=== PATIENT | female | born 1960 | race Caucasian/White ===

== ENCOUNTER 2017-07-26 10:19 | Emergency (ER) | payer MEDICARE ==
[~2017-07-26] VITALS: Ht 165.1 cm; Wt 90.7 kg
[~2017-07-26 10:19] MED LIST: ACETAMINOP325 MG/10 PO; IRBESARTAN150 MG PO; KRILL OIL500 MG PO; LEVEMIR100 UNIT/1; NOVOLOG MI100 UNITS/; OMEPRAZOLE40 MG PO; [UNRECOGNIZED DRUG - OTHER] PO
[2017-07-26] MEDS ORDERED: ALBUTEROL SULF 0.083% NEB SOLN 3 ML NEB NEB STA (10:55)
[2017-07-26] MEDS ORDERED: DEXAMETHASONE SOD PHOS 10 MG/1 ML VIAL INJ ONE (11:00)
--- NOTE | 2017-07-26 12:32 | Diagnostic Imaging Report ---
PROCEDURE: Frontal and lateral views of the chest. COMPARISON: None. INDICATIONS: COUGH, SHORTNESS OF BREATH FINDINGS: Lines/tubes: None. Lungs: The lungs are well inflated. 4 mm nodular density projects over the posterior aspect of the left fifth rib on the frontal view. There is no evidence of pneumonia or pulmonary edema. Pleura: There is no pleural effusion or pneumothorax. Heart and mediastinum: Cardiac silhouette is unremarkable. Pulmonary vasculature is normal. Bones: No acute bony abnormality. IMPRESSION: 1. No acute cardiopulmonary disease. 2. 4 mm nodular density in the left upper lobe may represent a calcified granuloma or pulmonary nodule. Prior films, if available, would be helpful for comparison. If no prior films can be obtained, recommend followup chest, PA and lateral in 3 months to document stability. Crow Hendrix M.D. Dictated by: Crow Hendrix M.D. on 07/26/2017 at 12:40 Electronically approved by: Crow Hendrix M.D. on 07/26/2017 at 12:40
[2017-07-26 13:34] VITALS: BP 138/62
== END 2017-07-26 13:50 | disposition home or self-care (01) ==
LOC: ER 10:19
DX: R50.9 Fever, unspecified (principal); R05 Cough; J20.8 Acute bronchitis due to other specified organisms
CPT/HCPCS: 71020; 87400; 99283; J1100

== ENCOUNTER 2019-05-28 13:50 | Outpatient (RCR) | payer MEDICARE | END 2019-06-15 | LOC: PT 13:50 | PROVIDERS: ATTEND Specialist | DX: M25.512 Pain in left shoulder (principal); M25.612 Stiffness of left shoulder, not elsewhere classified; M62.81 Muscle weakness (generalized); M54.2 Cervicalgia ==

== ENCOUNTER 2019-10-02 13:59 | Outpatient (RCR) | payer MEDICARE ==
[~2019-10-02 13:59] MED LIST changes: +AMLODIPINE BESY10 MG PO; +CALCIUM 500+D1 EACH PO; +CELEBREX100 MG PO; +EPIPEN INJ; +GLIPIZIDE5 MG PO; -LEVEMIR100 UNIT/1; +LEVEMIR100 UNIT/1 SQ; +METOCLOPRAMIDE10 MG PO; +METOPROLOL TART25 MG PO; +NOVOLOG100 UNIT/1 SC; +PANTOPRAZOLE SO20 MG PO; +SIMVASTATIN20 MG PO; +TRADJENTA5 MG PO; +ZYRTEC10 M3 PO
== END 2019-10-15 ==
LOC: PT 13:59
PROVIDERS: ATTEND Specialist
DX: M25.512 Pain in left shoulder (principal); M25.612 Stiffness of left shoulder, not elsewhere classified; M62.81 Muscle weakness (generalized)

== ENCOUNTER 2019-12-13 13:52 | Outpatient (RCR) | payer MEDICARE | END 2019-12-15 | LOC: PT 13:52 | PROVIDERS: ATTEND Specialist | DX: M75.102 Unspecified rotator cuff tear or rupture of left shoulder, not specified as traumatic (principal); M25.512 Pain in left shoulder; M62.81 Muscle weakness (generalized); M25.612 Stiffness of left shoulder, not elsewhere classified | CPT/HCPCS: 97139 ==

== ENCOUNTER 2020-01-13 14:41 | Outpatient (RCR) | payer MEDICARE | END 2020-01-14 | LOC: PT 14:41 | PROVIDERS: ATTEND Specialist | DX: M75.102 Unspecified rotator cuff tear or rupture of left shoulder, not specified as traumatic (principal); M62.81 Muscle weakness (generalized); M25.512 Pain in left shoulder; M25.612 Stiffness of left shoulder, not elsewhere classified ==

== ENCOUNTER 2020-02-12 15:00 | Outpatient (RCR) | payer MEDICARE | END 2020-02-14 | LOC: PT 15:00 | PROVIDERS: ATTEND Specialist | DX: M75.102 Unspecified rotator cuff tear or rupture of left shoulder, not specified as traumatic (principal); M62.81 Muscle weakness (generalized); M25.512 Pain in left shoulder; M25.612 Stiffness of left shoulder, not elsewhere classified | CPT/HCPCS: 97139 ==

== ENCOUNTER 2020-03-04 14:56 | Outpatient (RCR) | payer MEDICARE ==
[~2020-03-04 14:56] MED LIST changes: +HUMALOG100 UNIT/1 SQ; +JARDIANCE10 MG PO; +PENTOXIFYLLINE400 MG PO; +SINGULAIR10 MG PO
== END 2020-03-16 ==
LOC: PT 14:56
PROVIDERS: ATTEND Specialist
DX: M75.102 Unspecified rotator cuff tear or rupture of left shoulder, not specified as traumatic (principal); M62.81 Muscle weakness (generalized); M25.512 Pain in left shoulder; M25.612 Stiffness of left shoulder, not elsewhere classified

== ENCOUNTER → 2021-03-16 | Outpatient (CLI) | payer MEDICARE | LOC: MRI 12:37 | PROVIDERS: ATTEND Specialist | DX: M75.102 Unspecified rotator cuff tear or rupture of left shoulder, not specified as traumatic (principal) ==

== ENCOUNTER → 2021-04-15 | Outpatient (RCR) | payer MEDICARE | LOC: PT 04-02 12:47 | PROVIDERS: ATTEND Specialist | DX: M75.02 Adhesive capsulitis of left shoulder (principal); M25.512 Pain in left shoulder; M25.612 Stiffness of left shoulder, not elsewhere classified; M62.81 Muscle weakness (generalized) ==

== ENCOUNTER 2021-04-16 12:49 | Outpatient (RCR) | payer MEDICARE | END 2021-05-16 | LOC: PT 12:49 | PROVIDERS: ATTEND Specialist | DX: M75.02 Adhesive capsulitis of left shoulder (principal); M25.512 Pain in left shoulder; M25.612 Stiffness of left shoulder, not elsewhere classified; M62.81 Muscle weakness (generalized) ==

== ENCOUNTER → 2021-07-26 | Day surgery (SDC) | payer MEDICARE ==
[2021-07-23 13:50] LABS: CREATININE, SERUM 1.16 mg/dL (0.57-1.11)
[~2021-07-26] MED LIST changes: +BROMOCRIPTINE ME5 MG PO; +FAMOTIDINE20 MG PO; +FENTANYL CITRATE/PF 100MCG/2 ML INJ ONE; +FLONASE ALLERG9.9 ML INH; +LIDOCAINE HCL 2% LOCAL INJ 5 ML SDV VIAL INJ ONE; +LOSARTAN POTAS100 MG PO; +MECLIZINE HCL12.5 MG PO; +MIDAZOLAM HCL 2 MG/2 ML VIAL ONE; +POVIDONE IODINE 0.05% 0.05 % ML PO ONE; +PROPOFOL IV EMULSION 10 MG/ML 20 ML VIAL ONE; +SEVOFLURANE INHAL SOLN 250 ML PEN BTL ONE
[2021-07-26 07:40] VITALS: BP 113/53
== END | disposition home or self-care (01) ==
LOC: OR 06:47
PROVIDERS: ATTEND Specialist
DX: M75.02 Adhesive capsulitis of left shoulder (principal); I10 Essential (primary) hypertension; E78.5 Hyperlipidemia, unspecified; K21.9 Gastro-esophageal reflux disease without esophagitis; E11.9 Type 2 diabetes mellitus without complications; Z88.6 Allergy status to analgesic agent; Z88.1 Allergy status to other antibiotic agents; Z88.0 Allergy status to penicillin; Z88.2 Allergy status to sulfonamides; Z88.8 Allergy status to other drugs, medicaments and biological substances; Z01.810 Encounter for preprocedural cardiovascular examination; Z01.812 Encounter for preprocedural laboratory examination; Z20.822 Contact with and (suspected) exposure to COVID-19; Z79.4 Long term (current) use of insulin; Z79.899 Other long term (current) drug therapy; Z68.35 Body mass index [BMI] 35.0-35.9, adult
CPT/HCPCS: 23700; 36415 ×2; 80048; 82948; 93005; J3010; U0002; J2001; J2250

== ENCOUNTER → 2023-01-10 | Day surgery (SDC) | payer MEDICARE, OTHER ==
[~2023-01-10] MED LIST changes: -FENTANYL CITRATE/PF 100MCG/2 ML INJ ONE; +FUROSEMIDE40 MG PO; +HYOSCYAMINE SULFATE 0.5 MG/ML INJ ONE; +LACTATED RINGER'S 1,000 ML ONE; -MIDAZOLAM HCL 2 MG/2 ML VIAL ONE; +NOVOLIN N100 UNIT/1; +PIOGLITAZONE HC45 MG PO; -POVIDONE IODINE 0.05% 0.05 % ML PO ONE; +PROBIOTIC & AC1 EACH PO; -SEVOFLURANE INHAL SOLN 250 ML PEN BTL ONE; +VITAMIN D325 MCG; +ZYRTEC10 MG
[2023-01-10 15:51] VITALS: TEMP 97.6
[2023-01-10 16:20] VITALS: BP 116/62; PULSE 72; RESP 16; O2SAT 100
== END | disposition home or self-care (01) ==
LOC: OR 12:18
PROVIDERS: ATTEND Internal Medicine Gastroenterology
DX: K63.5 Polyp of colon (principal); K63.89 Other specified diseases of intestine; K64.8 Other hemorrhoids; K29.60 Other gastritis without bleeding; K21.9 Gastro-esophageal reflux disease without esophagitis; K44.9 Diaphragmatic hernia without obstruction or gangrene; Z71.3 Dietary counseling and surveillance; E78.5 Hyperlipidemia, unspecified; E11.22 Type 2 diabetes mellitus with diabetic chronic kidney disease; I12.9 Hypertensive chronic kidney disease with stage 1 through stage 4 chronic kidney disease, or unspecified chronic kidney disease; N18.30 Chronic kidney disease, stage 3 unspecified; R42 Dizziness and giddiness; Z88.6 Allergy status to analgesic agent; Z88.1 Allergy status to other antibiotic agents; Z88.0 Allergy status to penicillin; Z88.8 Allergy status to other drugs, medicaments and biological substances; Z01.810 Encounter for preprocedural cardiovascular examination; Z79.4 Long term (current) use of insulin; Z79.84 Long term (current) use of oral hypoglycemic drugs; Z79.899 Other long term (current) drug therapy; Z68.35 Body mass index [BMI] 35.0-35.9, adult; Z87.891 Personal history of nicotine dependence; Z80.0 Family history of malignant neoplasm of digestive organs
CPT/HCPCS: 36415; 45380; 45385; 82948; 88305; 93005; J1980; J2001; J2704; J7121

== ENCOUNTER 2023-05-03 10:52 | Observation (INO) | payer MEDICARE, OTHER ==
[~2023-05-03] VITALS: Ht 165.1 cm; Wt 95.4 kg
[~2023-05-03 10:52] MED LIST changes: -HYOSCYAMINE SULFATE 0.5 MG/ML INJ ONE; -LACTATED RINGER'S 1,000 ML ONE; -LIDOCAINE HCL 2% LOCAL INJ 5 ML SDV VIAL INJ ONE; -PROPOFOL IV EMULSION 10 MG/ML 20 ML VIAL ONE
[2023-05-03 12:01] LABS: BASOPHILS % 0.4 % (0.0-1.0); EOSINOPHILS # (AUTO) 0.1 (0.0-0.4); EOSINOPHILS % 1.3 % (0.0-6.0); HEMOGLOBIN 13.7 g/dL (12.0-16.0); LYMPHOCYTES # (AUTO) 1.3 (1.0-3.2); LYMPHOCYTES % 14.2 % (18.0-39.1); MEAN CORPUSCULAR HEMOGLOBIN 31.6 pg (28-32); MEAN CORPUSCULAR HGB CONC 34.3 g/dL (31-35); MEAN CORPUSCULAR VOLUME 92.2 fL (81-99); MONOCYTES # (AUTO) 0.6 (0.2-0.8); MONOCYTES % 6.3 % (4.4-11.3); NEUTROPHILS # (AUTO) 7.1 (2.1-6.9); NEUTROPHILS % 77.5 % (38.7-80.0); PLATELET COUNT 161 x10e3/uL (140-360); RED BLOOD COUNT 4.34 x10e6/uL (3.6-5.1); RED CELL DISTRIBUTION WIDTH 13.6 % (11.7-14.4); WHITE BLOOD COUNT 9.17 x10e3/uL (4.8-10.8)
[2023-05-03 12:18] LABS: INR 0.94; PARTIAL THROMBOPLASTIN TIME 25.8 seconds (23.8-35.5); PROTHROMBIN TIME 13.1 seconds (11.9-14.5)
[2023-05-03 12:29] LABS: ALBUMIN 4.1 g/dL (3.5-5.0); ALBUMIN/GLOBULIN RATIO 1.1 (0.8-2.0); CALCIUM 9.9 mg/dL (8.4-10.2); CREATININE, SERUM 1.32 mg/dL (0.57-1.11)
[2023-05-03 12:55] LABS: MAGNESIUM 2.2 MG/DL (1.3-2.1)
[2023-05-03] MEDS ORDERED: HEPARIN SOD (PORCINE) 5,000 UNIT/ML VIAL IV ONE (13:15)
[2023-05-03] MEDS ORDERED: NITROGLYCERIN 0.4 MG SUBL SL ONE (13:15)
[2023-05-03] MEDS ORDERED: HEPARIN 25,000 UNIT/D5W 250ML 800 UNIT in DEXTROSE 5% 250ML 250 ML IV SCH (13:15)
[2023-05-03] MEDS ORDERED: HEPARIN 25,000 UNIT DRIP IV ONE (13:33)
[2023-05-03] MEDS: HEPARIN 25,000 UNIT/D5W 250ML 800 UNIT in DEXTROSE 5% 250ML 250 ML IV SCH (13:41)
[2023-05-03] MEDS ORDERED: LACTATED RINGER'S 1,000 ML IV ONE (14:45)
[2023-05-03] MEDS ORDERED: IOPAMIDOL 370 MG/ML 100 ML INFUS..BTL INJ ONE (14:45)
[2023-05-03 16:00] VITALS: BP 167/54; PULSE 74; RESP 19; TEMP 98.1; O2SAT 97
[2023-05-03] MEDS ORDERED: PLAVIX75 MG PO (17:41)
[2023-05-03 17:47] VITALS: BP 167/54; PULSE 74; RESP 19; TEMP 98.1; O2SAT 97
[2023-05-03] MEDS ORDERED: HUMULIN R100 UNIT/2 INJ (18:27)
[2023-05-03 20:00] VITALS: BP 145/55; PULSE 81; RESP 20; TEMP 98.7; O2SAT 99
[2023-05-03 21:00] VITALS: BP 145/55; PULSE 81; RESP 20; TEMP 98.7; O2SAT 99
[2023-05-04] VITALS: BP 147/50; PULSE 82; RESP 20; TEMP 98.7; O2SAT 96
[2023-05-04 03:00] VITALS: BP 127/51; PULSE 67; RESP 20; TEMP 98; O2SAT 94
[2023-05-04] MEDS: HEPARIN 25,000 UNIT/D5W 250ML 800 UNIT in DEXTROSE 5% 250ML 250 ML IV SCH (03:15)
[2023-05-04] MEDS ORDERED: PANTOPRAZOLE SOD 40 MG TABEC PO SCH (07:45)
[2023-05-04 08:43] VITALS: BP 139/68; PULSE 69; RESP 16; TEMP 98.2; O2SAT 99
[2023-05-04 08:48] VITALS: BP 139/68; PULSE 69; RESP 16; TEMP 98.2; O2SAT 99
[2023-05-04] MEDS ORDERED: FLUTICASONE PROPIONATE NASAL SPRAY NS SCH (09:00)
[2023-05-04] MEDS ORDERED: FAMOTIDINE 20 MG TAB PO SCH (09:00)
[2023-05-04] MEDS ORDERED: MECLIZINE HCL 12.5 MG TAB PO SCH (09:00)
[2023-05-04] MEDS ORDERED: PIOGLITAZONE HCL 45 MG TAB PO SCH (09:00)
[2023-05-04] MEDS ORDERED: LOSARTAN POTASSIUM 25 MG TAB PO SCH (09:00)
[2023-05-04] MEDS ORDERED: MONTELUKAST SODIUM 10 MG TAB PO SCH (09:00)
[2023-05-04] MEDS ORDERED: PENTOXIFYLLINE 400 MG TAB CR PO SCH (09:00)
[2023-05-04] MEDS ORDERED: LACTOBACILLUS ACIDOPHILUS CAPSULE PO SCH (09:00)
[2023-05-04] MEDS ORDERED: DEXTROSE 50% SYRINGE 50 ML IV PRN (09:15)
[2023-05-04] MEDS ORDERED: CLOPIDOGREL BISULFATE 75 MG TAB PO ONE (10:00)
[2023-05-04] MEDS: INSULIN LISPRO 100 UNIT/1 ML 3ML VIAL SQ SCH ×2 (11:30→11:48)
[2023-05-04 12:25] VITALS: BP 140/55; PULSE 70; RESP 18; TEMP 98.2; O2SAT 97
[2023-05-04] MEDS ORDERED: SIMVASTATIN 20 MG TAB PO SCH (21:00)
[2023-05-04] MEDS ORDERED: AMLODIPINE BESYLATE 10 MG TAB PO SCH (21:00)
[2023-05-05] MEDS ORDERED: CLOPIDOGREL BISULFATE 75 MG TAB PO SCH (09:00)
== END 2023-05-04 15:34 | disposition home or self-care (01) ==
LOC: ER 11:14 → ERHOLD 13:28 → INTOOBSV 13:28 → MED/SURG2 15:52
PROVIDERS: ADMIT Internal Medicine; ATTEND Internal Medicine
DX: R07.89 Other chest pain (principal); M94.0 Chondrocostal junction syndrome [Tietze]; R79.89 Other specified abnormal findings of blood chemistry; I25.10 Atherosclerotic heart disease of native coronary artery without angina pectoris; Z95.5 Presence of coronary angioplasty implant and graft; R42 Dizziness and giddiness; E11.22 Type 2 diabetes mellitus with diabetic chronic kidney disease; I12.9 Hypertensive chronic kidney disease with stage 1 through stage 4 chronic kidney disease, or unspecified chronic kidney disease; N18.9 Chronic kidney disease, unspecified; E78.5 Hyperlipidemia, unspecified; E66.9 Obesity, unspecified; Z88.6 Allergy status to analgesic agent; Z91.012 Allergy to eggs; Z91.011 Allergy to milk products; Z88.0 Allergy status to penicillin; Z88.8 Allergy status to other drugs, medicaments and biological substances; Z91.018 Allergy to other foods; Z91.010 Allergy to peanuts; Z11.52 Encounter for screening for COVID-19; Z79.02 Long term (current) use of antithrombotics/antiplatelets; Z79.4 Long term (current) use of insulin; Z79.84 Long term (current) use of oral hypoglycemic drugs; Z79.899 Other long term (current) drug therapy; Z68.35 Body mass index [BMI] 35.0-35.9, adult
CPT/HCPCS: 36415 ×2; 71045; 71260; 80053; 82550 ×2; 83735; 84484 ×2; 85025; 85379; 85610; 85730 ×2; 93005 ×2; 96365; 99284; G0378 ×2; J1644; J8597; Q9967; S0164; U0002

== ENCOUNTER 2024-12-26 15:29 | Observation (INO) | payer MEDICARE ==
[~2024-12-26] VITALS: Ht 162.6 cm; Wt 82.6 kg
[~2024-12-26 15:29] MED LIST changes: +HUMULIN R100 UNIT/2 INJ; +PLAVIX75 MG PO
[2024-12-26] MEDS ORDERED: DYMISTA NASAL S23 GM INH (15:44)
[2024-12-26] MEDS ORDERED: CRESTOR40 MG PO (15:44)
[2024-12-26] MEDS ORDERED: JARDIANCE25 MG PO (15:44)
[2024-12-26] MEDS ORDERED: MOUNJARO12.5 MG/0. SQ (15:44)
[2024-12-26] MEDS ORDERED: SODIUM CHLORIDE FLUSH 10 ML SYR IV PRN (16:00)
[2024-12-26 16:07] LABS: BASOPHILS % 0.6 % (0.0-1.0); EOSINOPHILS # (AUTO) 0.2 (0.0-0.4); EOSINOPHILS % 3.8 % (0.0-6.0); HEMATOCRIT 39.9 % (34.2-44.1); HEMOGLOBIN 13.5 g/dL (12.0-16.0); LYMPHOCYTES # (AUTO) 1.1 (1.0-3.2); MEAN CORPUSCULAR HEMOGLOBIN 32.8 pg (28-32); MEAN CORPUSCULAR HGB CONC 33.8 g/dL (31-35); MEAN CORPUSCULAR VOLUME 97.1 fL (81-99); MONOCYTES # (AUTO) 0.4 (0.2-0.8); MONOCYTES % 8.4 % (4.4-11.3); PLATELET COUNT 149 x10e3/uL (140-360); RED BLOOD COUNT 4.11 x10e6/uL (3.6-5.1); RED CELL DISTRIBUTION WIDTH 13.2 % (11.7-14.4); WHITE BLOOD COUNT 4.74 x10e3/uL (4.8-10.8)
[2024-12-26] MEDS: HYDRALAZINE HCL 20 MG/ML VIAL IV STA (16:11)
[2024-12-26 16:19] LABS: ALBUMIN 4.3 g/dL (3.5-5.0); ALBUMIN/GLOBULIN RATIO 1.3 (0.8-2.0); ANION GAP 17.9 mmol/L (8-16); BILIRUBIN,TOTAL 0.6 mg/dL (0.2-1.2); CALCIUM 9.5 mg/dL (8.4-10.2); CREATININE, SERUM 1.1 mg/dL (0.57-1.11); POTASSIUM 3.9 mmol/L (3.5-5.1); TOTAL PROTEIN 7.7 g/dL (6.5-8.1)
[2024-12-26 16:25] LABS: TROPONIN I 0.014 ng/mL (0-0.300)
[2024-12-26] MEDS ORDERED: SODIUM CHLORIDE FLUSH 10 ML SYR INJ PRN (17:45)
[2024-12-26] MEDS: ASPIRIN 81 MG CHEW TAB PO ONE ×2 (18:20)
[2024-12-26] MEDS: ONDANSETRON HCL INJ 2MG/ML 2ML 2 MG/ML VIAL IV PRN (18:22)
[2024-12-26] MEDS: SODIUM CHLORIDE 0.9% 1000ML 1,000 ML IV ONE (18:23)
[2024-12-26] MEDS: Morphine 2mg Syringe 2 MG/ML SYR IV PRN (18:23)
[2024-12-26 18:47] VITALS: PULSE 80; RESP 16; TEMP 97.8
[2024-12-26 21:00] VITALS: BP 128/72; PULSE 80; RESP 20; TEMP 98.2; O2SAT 100
[2024-12-26 21:38] VITALS: BP 156/61; PULSE 81; RESP 18; TEMP 97; O2SAT 100
[2024-12-27] VITALS (7 sets, daily range): BP systolic 127–153; BP diastolic 54–62; PULSE 71–92; RESP 16–18; TEMP 97.8–98.7; O2SAT 96–100
[2024-12-27 06:26] LABS: BASOPHILS % 0.8 % (0.0-1.0); EOSINOPHILS # (AUTO) 0.2 (0.0-0.4); EOSINOPHILS % 6.2 % (0.0-6.0); HEMATOCRIT 35.4 % (34.2-44.1); HEMOGLOBIN 11.9 g/dL (12.0-16.0); LYMPHOCYTES # (AUTO) 1.1 (1.0-3.2); MEAN CORPUSCULAR HEMOGLOBIN 33.1 pg (28-32); MEAN CORPUSCULAR HGB CONC 33.6 g/dL (31-35); MEAN CORPUSCULAR VOLUME 98.3 fL (81-99); MONOCYTES # (AUTO) 0.4 (0.2-0.8); MONOCYTES % 9.9 % (4.4-11.3); NEUTROPHILS # (AUTO) 1.9 (2.1-6.9); NEUTROPHILS % 52.8 % (38.7-80.0); PLATELET COUNT 125 x10e3/uL (140-360); RED CELL DISTRIBUTION WIDTH 13.3 % (11.7-14.4); WHITE BLOOD COUNT 3.53 x10e3/uL (4.8-10.8)
[2024-12-27 06:44] LABS: ALBUMIN 3.3 g/dL (3.5-5.0); ALBUMIN/GLOBULIN RATIO 1.2 (0.8-2.0); ANION GAP 13.6 mmol/L (8-16); BILIRUBIN,TOTAL 0.5 mg/dL (0.2-1.2); CALCIUM 8.7 mg/dL (8.4-10.2); CREATININE, SERUM 0.86 mg/dL (0.57-1.11); POTASSIUM 3.6 mmol/L (3.5-5.1)
[2024-12-27 07:19] LABS: TROPONIN I 0.031 ng/mL (0-0.300)
[2024-12-27] MEDS ORDERED: DEXTROSE 50% SYRINGE 50 ML IV PRN (10:30)
[2024-12-27] MEDS ORDERED: ACETAMINOPHEN 325 MG TAB PO PRN (10:30)
[2024-12-27] MEDS: FAMOTIDINE 20 MG TAB PO SCH (10:30)
[2024-12-27] MEDS ORDERED: HYDRALAZINE HCL 25 MG TAB PO PRN (10:30)
[2024-12-27] MEDS: CLOPIDOGREL BISULFATE 75 MG TAB PO SCH (11:07)
[2024-12-27] MEDS: AMLODIPINE BESYLATE 5 MG TAB PO ONE (11:08)
[2024-12-27] MEDS: METOPROLOL TARTRATE 25 MG TAB PO SCH (11:08)
[2024-12-27] MEDS: INSULIN LISPRO 100 UNIT/1 ML 3ML VIAL SQ SCH (11:30)
[2024-12-27 13:58] LABS: TROPONIN I 0.016 ng/mL (0-0.300)
[2024-12-27] MEDS: NITROFURANTOIN MACROCRYSTALS 100 MG CAP PO SCH (17:12)
[2024-12-27] MEDS: CRESTOR 10MG PO SCH (21:44)
[2024-12-28] VITALS: BP 136/67; PULSE 73; RESP 18; TEMP 97.7; O2SAT 99
[2024-12-28 04:00] VITALS: BP 151/63; PULSE 70; RESP 16; TEMP 97.5; O2SAT 96
[2024-12-28 08:58] VITALS: BP 152/61; PULSE 70; RESP 20; TEMP 98.1; O2SAT 100
[2024-12-28] MEDS: NON-FORMULARY MEDICATION (Empagliflozin (Jardiance) 25 MG) PO SCH (09:00)
[2024-12-28] MEDS: AMLODIPINE BESYLATE 5 MG TAB PO SCH (09:00)
[2024-12-28] MEDS ORDERED: PIOGLITAZONE HCL 45 MG TAB PO SCH (09:00)
[2024-12-28] MEDS: HYDRALAZINE HCL 20 MG/ML VIAL IV STA (09:25)
[2024-12-28] MEDS: PANTOPRAZOLE SODIUM 20 MG TABLET.DR PO SCH (10:06)
[2024-12-28] MEDS: PIOGLITAZONE HCL 15 MG TAB PO SCH (10:06)
[2024-12-28 10:18] VITALS: BP 152/61; PULSE 70; RESP 20; TEMP 98.1; O2SAT 100
[2024-12-28 12:25] VITALS: BP 132/50; PULSE 70; RESP 20; TEMP 98.6; O2SAT 98
== END 2024-12-28 12:20 | disposition home or self-care (01) ==
LOC: ER 15:54 → ERHOLD 17:32 → MED/SURG3 20:32
PROVIDERS: ADMIT Internal Medicine; ATTEND Internal Medicine
DX: I16.0 Hypertensive urgency (principal); R07.89 Other chest pain; I25.10 Atherosclerotic heart disease of native coronary artery without angina pectoris; Z95.5 Presence of coronary angioplasty implant and graft; I10 Essential (primary) hypertension; E11.9 Type 2 diabetes mellitus without complications; Z79.85 Long-term (current) use of injectable non-insulin antidiabetic drugs; E78.5 Hyperlipidemia, unspecified; E66.9 Obesity, unspecified; Z68.31 Body mass index [BMI] 31.0-31.9, adult
CPT/HCPCS: 36415 ×3; 71045; 80053 ×2; 82550; 82948 ×2; 83690; 83880; 84484 ×2; 85025 ×2; 93005; 93306; 94760; 99284; G0378 ×3; J0360; J2270 ×2; J2405; J7030